=== PATIENT | female | born 1965 | race Caucasian/White ===

== ENCOUNTER 2024-11-10 06:20 | Day surgery (SDC) | payer OTHER, SELFPAY | END 2024-11-10 09:57 | disposition home or self-care (01) | LOC: GI 06:20 | PROVIDERS: ATTENDING PHYSICIAN Surgery | DX: Z12.11 Encounter for screening for malignant neoplasm of colon (principal); Z85.048 Personal history of other malignant neoplasm of rectum, rectosigmoid junction, and anus | CPT/HCPCS: G0105 ==